=== PATIENT | female | born 1975 | race Asian ===

== ENCOUNTER 2019-04-26 08:44 | Inpatient (IN) | payer OTHER ==
[~2019-04-26] VITALS: Ht 157.5 cm; Wt 53.5 kg
[2019-04-26 08:46] VITALS: Ht 157.5 cm; Wt 53.5 kg
--- NOTE | 2019-04-26 08:46 | NUR ---
PT FILIBERTO FROM [facility]RG[facility]ARE [facility] R/T SVT. PT STS SHE WOKE UP THIS MORNING AND FELT SMALL AMOUNT OF CHEST PRESSURE AND LEFT FOR WORK. WHILE DRIVING PT STS SHE STARTED TO FEEL MORE CHEST PRESSURE AND PULLED OVER TO URGENT CARE. PER URGENT CARE, PT WAS IN SVT AT 220 AND 911 WAS CALLED. MEDICS STARTED 18G IV TO R AC AND ADMINISTERED 6MG ADENOSINE IVP WITH 300ML NS AND PT CONVERTED TO SINUS TACH. PT AAOX4, RESPS E/U, DENIES N/V/D/C, DENIES ALL PAIN, DENIES CHEST PAIN. 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 CALL LIGHT IS WITHIN REACH.
[2019-04-26 09:38] LABS: CALCIUM 8.5 mg/dL (8.5-10.1); CARBON DIOXIDE 23.6 mmol/L (21-32); CHLORIDE SERUM 104 mmol/L (98-107); CREATININE SERUM 0.9 mg/dL (0.6-1.0); GFR1 > 60 mL/min; GLUCOSE SERUM 102 mg/dL (74-106); POTASSIUM SERUM 3.7 mmol/L (3.5-5.1); SODIUM SERUM 139 mmol/L (136-145)
[2019-04-26 09:41] LABS: ALBUMIN 3.7 g/dL (3.4-5.0); ALKALINE PHOSPHATASE 49 U/L (46-116); ALT/SGPT 27 U/L (14-59); AST/SGOT 16 U/L (15-37); BILIRUBIN TOTAL 0.2 mg/dL (0.20-1.00); TOTAL PROTEIN, SERUM 7.7 g/dL (6.4-8.2)
[2019-04-26 09:57] LABS: FREE T4 0.97 ng/dL (0.76-1.46); FREE THYROXINE INDEX 2.6 ug/dL (1.4-4.5); T4(THYROXINE) 9.2 ug/dL (4.7-13.3)
[2019-04-26 09:59] LABS: T3 TOTAL 1.06 ng/mL
--- NOTE | 2019-04-26 10:10 | NUR ---
AMBULATED TO BATHROOM WITH STEADY GAIT WITH AT SIDE.
--- NOTE | 2019-04-26 10:15 | NUR ---
AT BEDSIDE TO DISCUSS PLAN OF CARE WITH PT AND PT .
--- NOTE | 2019-04-26 10:36 | NUR ---
PT REPORTS MILD DIZZINESS AT THIS TIME; ON GURNEY IN POSITION OF COMFORT WITH CALL LIGHT IN REACH. AWARE. AT BEDSIDE
--- NOTE | 2019-04-26 11:09 | NUR ---
CALLED REPORT TO RICKY LOVELACE IN TELE TO ASSUME CARE OF PT
[2019-04-26 11:15] LABS: BASOPHIL % 0.5 % (0-2); RED CELL DISTRIBUTION WIDTH 12.8 % (11.5-14.5)
[2019-04-26 11:16] LABS: PLATELET COUNT 406 x10^3mcL (130-400)
[2019-04-26] MEDS ORDERED: METOPROLOL SUCC25 M2 PO (12:45)
[2019-04-26 13:20] VITALS: BP 156/112
[2019-04-26 13:26] VITALS: BP 137/102
[2019-04-26 17:23] VITALS: BP 144/103
--- NOTE | 2019-04-26 17:33 | NUR ---
[facility] CALLED TO REPORT A RUN OF V TACH THAT LASTED 9 BEATS. VITALS ASSESSED, BP 144/110 (124), HR 90, O2 SAT 95. pT DENIED CP, OR SOB. MILD HEADACHE REPORTED, BUT PT DECLINED MEDS. CHARGE NURSE MADE AWARE, WILL CONTINUE TO MONITOR.
--- NOTE | 2019-04-26 17:46 | NUR ---
LAB CALLED TO REPORT TROP # 3 OF [id number]. CHARGE NURSE MADE AWARE, PT IN NAD AT THIS TIME.
--- NOTE | 2019-04-26 17:55 | NUR ---
CALLED AND INFORMED TO DR. FORBES FOR PATIENT'S THREE TROPONIN RESULS, AND ABNORMAL EKG HAPPENED AT 17:25. DISCHARGE ORDER ON HOLD UNTIL CLEARED BY STONE AND CONCRETE WASHER DR. VAZ PER DR. FORBES. PATIENT MADE AWARE.
--- NOTE | 2019-04-26 19:34 | NUR ---
REPORT GIVEN TO PROJECT MANAGEMENT DIRECTOR NURSE CARE ENDORSED
--- NOTE | 2019-04-26 20:24 | NUR ---
PT BP IS 156/112, MAP 92. DR FORBES NOTIFIED. DR FORBES STATED IT IS STABLE TO DISCHARGE PT HOME. NO DISTRESS REPORTED BY THE PATIENT. PT HAS BEEN CLEARED BY CARDIOLOGY AND ATTENDING PHYSICIAN.
== END 2019-04-26 20:41 | disposition home or self-care (01) | DRG 282 ==
LOC: ED 08:44 → DU 10:54
PROVIDERS: Emergency Medicine; ADMIT Internal Medicine Pulmonary Disease
DX: I47.1 Supraventricular tachycardia (principal); I21.A1 Myocardial infarction type 2
CPT/HCPCS: 84439; 85378; G0378; J1644